=== PATIENT | male | born 1970 | race Caucasian/White ===

== ENCOUNTER 2018-12-20 01:12 | Emergency (ER) | payer OTHER ==
[~2018-12-20] VITALS: Ht 182.9 cm; Wt 91.6 kg
[2018-12-20 01:18] VITALS: Ht 182.9 cm; Wt 91.6 kg
[2018-12-20] MEDS ORDERED: LORAZEPAM 1 MG TAB PO ONE (02:30)
[2018-12-20 09:36] VITALS: BP 109/66; PULSE 80; RESP 18
== END 2018-12-20 09:40 ==
LOC: E/R 01:12
DX: R45.851 Suicidal ideations (principal); Z87.891 Personal history of nicotine dependence
CPT/HCPCS: 36415; 80053; 80307; 81003; 85025; Z7502; Z7610; 99283

== ENCOUNTER 2019-02-21 18:02 | Emergency (ER) | payer OTHER ==
[~2019-02-21] VITALS: Ht 182.9 cm; Wt 95.8 kg
[2019-02-21 18:07] VITALS: Ht 182.9 cm; Wt 95.8 kg
[2019-02-21 19:54] VITALS: BP 116/81; PULSE 70; RESP 19
== END 2019-02-22 03:41 ==
LOC: E/R 18:02
DX: R45.851 Suicidal ideations (principal); Z87.891 Personal history of nicotine dependence
CPT/HCPCS: 36415; 80053; 80307; 81003; 85025; Z7502